=== PATIENT | female | born 1980 | race Caucasian/White ===

== ENCOUNTER 2019-12-15 13:44 | Outpatient (CLI) | payer BC, SELFPAY ==
--- NOTE | 2019-12-15 13:58 | US_ITS ---
WS: [id number] ULTRASOUND PELVIS TECHNIQUE: Transabdominal and transvaginal. ULTRASOUND PELVIS TECHNIQUE: Transabdominal. CLINICAL INFORMATION: PELVIC PERINEAL PAIN/R OVARIAN CYST/LLQ PAIN LMP: : No. COMPARISON: None. FINDINGS: Uterus Orientation: Anteverted. Size: 6.2 cm x 5.3 cm x 3.5 cm. Masses: None. Cervix: 2.60 cm. Incidental nabothian cysts. Endometrium: Normal. Endometrium thickness: 0.3 cm. Adnexa: Small bilateral ovarian cysts. Right ovary size: 2.9 cm x 2.4 cm x 1.6 cm. Right ovary volume: 5.9 ccm3. Left ovary size: 2.8 cm x 2.3 cm x 2.4 cm. Left ovary volume: 8.0 ccm3 Free fluid: None. Other findings: None. US/US pelvic with transvaginal IMPRESSION: 1. Normal uterus. 2. Normal endometrium measuring 3 mm. 3. Bilateral simple ovarian cysts measuring 10 x 8 mm on the left and 8 mm in the right. 4. No free fluid in the cul-de-sac.
== END 2019-12-15 13:45 | disposition home or self-care (01) ==
LOC: RAD 13:52
PROVIDERS: PCP Nurse Practitioner Family; Visit Provider Nurse Practitioner Family
DX: R10.2 Pelvic and perineal pain (principal); N83.291 Other ovarian cyst, right side; R10.32 Left lower quadrant pain
CPT/HCPCS: 76830; 76856